=== PATIENT | male | born 1985 | race Two or more races ===

== ENCOUNTER 2017-12-07 18:19 | Emergency (ER) | payer MEDICAID ==
[~2017-12-07] VITALS: Ht 157.5 cm; Wt 69.9 kg
[2017-12-07 18:30] VITALS: BP 133/87
[2017-12-07 18:58] LABS: BASOPHILS % (AUTO) 1.1 % (0.0-2.0); EOSINOPHILS % (AUTO) 1.4 % (0.0-3.0); HEMATOCRIT 39.1 % (42.0-52.0); HEMOGLOBIN 13.4 G/DL (14.2-18.0); LYMPHOCYTES % (AUTO) 47.2 % (20.0-45.0); MEAN CORPUSCULAR VOLUME 89 FL (80-99); MONOCYTES % (AUTO) 7.2 % (1.0-10.0); NEUTROPHILS % (AUTO) 43.1 % (45.0-75.0); PLATELET COUNT 254 K/UL (150-450); RED BLOOD COUNT 4.39 M/UL (4.70-6.10); RED CELL DISTRIBUTION WIDTH 11.5 % (11.6-14.8); WHITE BLOOD COUNT 8.1 K/UL (4.8-10.8)
[2017-12-07 19:24] LABS: ANION GAP 9 mmol/L (5-15); BLOOD UREA NITROGEN 14 mg/dL (7-18); CALCIUM 8.6 MG/DL (8.5-10.1); CARBON DIOXIDE 27 MMOL/L (21-32); CHLORIDE 103 MMOL/L (98-107); CREATININE 0.8 MG/DL (0.55-1.30); POTASSIUM 3.2 MMOL/L (3.5-5.1); SODIUM 139 MMOL/L (136-145)
[2017-12-07 19:28] LABS: ALANINE AMINOTRANSFERASE 26 U/L (12-78); ALBUMIN 3.8 G/DL (3.4-5.0); ALBUMIN/GLOBULIN RATIO 1.1 (1.0-2.7); ALKALINE PHOSPHATASE 101 U/L (46-116); ASPARTATE AMINO TRANSFERASE 17 U/L (15-37); BILIRUBIN,TOTAL 0.4 MG/DL (0.2-1.0)
[2017-12-07 19:30] VITALS: BP 117/69
--- NOTE | 2017-12-07 19:40 | Diagnostic Imaging Report ---
EXAM: XR Chest, 1 View CLINICAL HISTORY: CP TECHNIQUE: Frontal view of the chest. COMPARISON: No relevant prior studies available. FINDINGS: Lungs: Unremarkable. No consolidation. Pleural space: Unremarkable. No pneumothorax. Heart: Unremarkable. No cardiomegaly. Mediastinum: Unremarkable. Bones/joints: Unremarkable. IMPRESSION: Normal chest x-ray.
--- NOTE | 2017-12-07 19:52 | Emergency Room Report ---
History of Present Illness General Chief Complaint: Chest Pain Source: Patient Present Illness HPI Mr. Estrada is a healthy 32 yo male who presents with 2 weeks of chest pain. Chest pain has been present while working and at rest. Left-sided chest heaviness. He has also had bilateral arm numbness with dyspnea. He was evaluated from similar symptoms at OSH 6 months ago. Diagnosed with depression. was sick. He also had new baby. emotionally he feels better now. He still has the symptoms. Allergies: Coded Allergies: No Known Allergies (Unverified , 12/07/17) Patient History Past Medical History: none Pertinent Family History: HTN Social History: Denies: smoking Nursing Documentation-[facility] Past Medical History: No Stated History Review of Systems Constitutional: Denies: fever, malaise Respiratory: Reports: cough Cardiovascular: Reports: chest pain; Denies: edema All Other Systems: negative except mentioned in HPI Physical Exam Vital Signs Date Time Temp Pulse Resp B/P (MAP) Pulse Ox O2 Delivery O2 Flow Rate FiO2 12/07/17 18:21 98.1 98 18 133/87 95 Room Air 98.1 Sp02 EP Interpretation: reviewed, normal General Appearance: no apparent distress, alert, GCS 15, non-toxic Head: normocephalic, atraumatic Eyes: bilateral eye normal inspection ENT: hearing grossly normal, normal pharynx, no angioedema, normal voice Neck: full range of motion, supple/symm/no masses Respiratory: chest non-tender, lungs clear, normal breath sounds, speaking full sentences Cardiovascular #1: regular rate, rhythm, no edema Gastrointestinal: normal bowel sounds, non tender, soft, non-distended, no guarding, no rebound Rectal: deferred Genitourinary: no CVA tenderness Musculoskeletal: back normal, gait/station normal, normal range of motion, non- tender, calf tenderness Neurologic: alert, oriented x3, responsive, motor strength/tone normal, sensory intact, speech normal Psychiatric: judgement/insight normal, memory normal, mood/affect normal Skin: normal color, no rash, warm/dry, well hydrated Medical Decision Making ER Course Mr. Estrada is a healthy male who presents with chest pain arm numbness dyspnea. Mild hypokalemia noted. Low risk for ACS. I recommended outpatient cardiac exam. rx: potassium chloride No indication of PE/dissection/pericarditis/ Labs Test 12/07/17 18:43 White Blood Count 8.1 K/UL (4.8-10.8) Red Blood Count 4.39 M/UL (4.70-6.10) Hemoglobin 13.4 G/DL (14.2-18.0) Hematocrit 39.1 % (42.0-52.0) Mean Corpuscular Volume 89 FL (80-99) Mean Corpuscular Hemoglobin 30.5 PG (27.0-31.0) Mean Corpuscular Hemoglobin Concent 34.2 G/DL (32.0-36.0) Red Cell Distribution Width 11.5 % (11.6-14.8) Platelet Count 254 K/UL (150-450) Mean Platelet Volume 7.9 FL (6.5-10.1) Neutrophils (%) (Auto) 43.1 % (45.0-75.0) Lymphocytes (%) (Auto) 47.2 % (20.0-45.0) Monocytes (%) (Auto) 7.2 % (1.0-10.0) Eosinophils (%) (Auto) 1.4 % (0.0-3.0) Basophils (%) (Auto) 1.1 % (0.0-2.0) Sodium Level 139 MMOL/L (136-145) Potassium Level 3.2 MMOL/L (3.5-5.1) Chloride Level 103 MMOL/L (98-107) Carbon Dioxide Level 27 MMOL/L (21-32) Anion Gap 9 mmol/L (5-15) Blood Urea Nitrogen 14 mg/dL (7-18) Creatinine 0.8 MG/DL (0.55-1.30) Estimat Glomerular Filtration Rate > 60 mL/min (>60) Glucose Level 154 MG/DL (74-106) Calcium Level 8.6 MG/DL (8.5-10.1) Total Bilirubin 0.4 MG/DL (0.2-1.0) Aspartate Amino Transf (AST/SGOT) 17 U/L (15-37) Alanine Aminotransferase (ALT/SGPT) 26 U/L (12-78) Alkaline Phosphatase 101 U/L (46-116) Troponin I 0.000 ng/mL (0.000-0.056) Total Protein 7.3 G/DL (6.4-8.2) Albumin 3.8 G/DL (3.4-5.0) Globulin 3.5 g/dL Albumin/Globulin Ratio 1.1 (1.0-2.7) Lab Results Impression troponin normal mild hypokalemia EKG Diagnostic Results EKG Time: 18:24 Rate: normal Rhythm: NSR ST Segments: no acute changes Other Impression no ST elevation no signs of ischemia no signs of pericarditis ASA given to the pt in ED: Yes Chest X-Ray Diagnostic Results Chest X-Ray Diagnostic Results : Chest X-Ray Ordered: Yes # of Views/Limited/Complete: 1 View Indication: Chest Pain EP Interpretation: Yes Interpretation: no consolidation, no effusion, no pneumothorax, no acute cardiopulmonary disease Electronically Signed by: This image has been electronically signed by Dr. Bere Rader Last Vital Signs Date Time Temp Pulse Resp B/P (MAP) Pulse Ox O2 Delivery O2 Flow Rate FiO2 12/07/17 18:30 98.1 18 133/87 95 Room Air 98.1 12/07/17 18:30 98 Referrals: NOT CHOSEN IPA/,REFERRING (PCP) BERE RADER Dec 07, 2017 19:52
[2017-12-07] MEDS ORDERED: POTASSIUM CHLO10 ME2 PO (19:55)
[2017-12-07 20:06] VITALS: BP 117/69
--- NOTE | 2017-12-08 18:38 | Cardiology Report ---
APPROVED REPORT EKG Measurement Heart [id number] Normal sinus rhythm Possible Left atrial enlargement Septal infarct, age undetermined Abnormal ECG
== END 2017-12-07 20:10 | disposition home or self-care (01) ==
LOC: EMR 18:50
DX: R07.9 Chest pain, unspecified (principal); R06.00 Dyspnea, unspecified; R20.0 Anesthesia of skin; F32.9 Major depressive disorder, single episode, unspecified; I10 Essential (primary) hypertension; R05 Cough
CPT/HCPCS: 36415; 71045; 80053; 84484; 85025; 93005; 99283